=== PATIENT | female | born 1940 | race Caucasian/White ===

== ENCOUNTER 2021-11-28 13:36 | Observation (INO) | payer MEDICARE ==
[2021-11-28 14:43] LABS: #Lymphocytes 1.4 thou/uL (1.20-3.40); #Monocytes 0.7 thou/uL (0.11-0.59); #Neutrophils 3.4 thou/uL (1.40-6.50); %Basophils 0.2 % (0.0-1.0); %Eosinophils 0.9 % (0.0-10.0); %Lymphocytes 24.5 % (21.0-51.0); %Monocytes 12.5 % (0.0-10.0); %Neutrophils 61.9 % (42.0-75.0); Hemoglobin 14.2 g/dL (12.0-16.0); Mean Corpuscular HGB CONC 33.3 g/dL (32.0-36.0); Mean Corpuscular Hemoglobin 30.2 pg (27.0-31.0); Mean Corpuscular Volume 90.9 fL (78.0-98.0); Mean Platelet Volume 9.7 fL (7.4-10.4); Platelet Count 231 thou/uL (130-400); RBC Distribution Width 12.5 % (11.5-14.5); White Blood Cell (WBC) Count 5.6 thou/uL (4.8-10.8)
[2021-11-28 14:49] LABS: Bacteria/HPF 4+ HPF (None Seen); Bilirubin Negative (Negative); Blood, Urine Negative (Negative); Clarity Turbid (Clear); Glucose, Urine (Dipstick) Normal (Negative); Ketone, Urine Negative (Negative); Leukocyte 25 Leu/uL (Negative); Nitrite Negative (Negative); Protein, Urine (Dipstick) 30 mg/dL (Neg-Trace); RBC/HPF 0-3 HPF (0-3); Specific Gravity, Urine 1.021 (1.002-1.036); Squamous Epithelial 0-3 HPF (0-3); Urobilinogen 3 mg/dL (Less than 2)
[2021-11-28 15:13] LABS: ALT (SGPT) 21 U/L (8-55); AST (SGOT) 19 U/L (5-34); Alkaline Phosphatase 86 U/L (40-110); Anion Gap 13 mmol/L (10-20); BUN (Urea Nitrogen) 24 mg/dL (9.8-20.1); Bilirubin, Total 0.7 mg/dL (0.2-1.2); Calc. Creatinine Clearance 0 mL/min (70-130); Calcium 10.3 mg/dL (7.8-10.44); Carbon Dioxide 29 mmol/L (23-31); Chloride 100 mmol/L (98-107); Globulin 2.9 g/dL (2.4-3.5); Glucose 98 mg/dL (83-110); Protein, Total 6.9 g/dL (5.8-8.1); Sodium 139 mmol/L (136-145)
[2021-11-28 15:19] LABS: Potassium 2.6 mmol/L (3.5-5.1)
[2021-11-28 15:33] LABS: CKMB 1.9 ng/mL (0-6.6)
[2021-11-28] MEDS ORDERED: cefTRIAXone\\ROCEPHIN 1 GM VIAL ONE (17:15)
[2021-11-28] MEDS ORDERED: Potassium Chloride 20 MEQ TAB ONE (17:15)
[2021-11-28] MEDS ORDERED: Aspirin Chewable 81 MG TAB ONE (17:15)
[2021-11-28] MEDS ORDERED: Potassium Chloride 20 MEQ/100 ML PREMIX BAG ONE (17:15)
[2021-11-28 18:07] LABS: Troponin I 0.021 ng/mL (< 0.028)
[2021-11-28] MEDS ORDERED: Calcium Carbonate 500 MG ChewTAB PO PRN (18:53)
[2021-11-28] MEDS ORDERED: Ondansetron ODT 4 MG TAB PO PRN (18:53)
[2021-11-28] MEDS ORDERED: Acetaminophen 325 MG TAB PO PRN (18:53)
[2021-11-28] MEDS ORDERED: Acetaminophen 650 MG Suppository PR PRN (18:53)
[2021-11-28] MEDS ORDERED: Ondansetron PF 4 MG/2 ML Vial IVP PRN (18:53)
[2021-11-28 19:24] LABS: SARS-CoV-2 NAA Rapid Test DETECTED (NotDetected)
[2021-11-28 19:45] VITALS: BP 169/79; TEMP 98.3
[2021-11-28 19:46] VITALS: BMI 25.7
[2021-11-28 20:29] LABS: Troponin I 0.017 ng/mL (< 0.028)
[2021-11-28] MEDS ORDERED: Amlodipine 10 MG TAB PO SCH (21:00)
[2021-11-28] MEDS ORDERED: Mirtazapine 15 MG TAB PO SCH (21:00)
[2021-11-28 21:12] LABS: Anion Gap 17 mmol/L (10-20); BUN (Urea Nitrogen) 23 mg/dL (9.8-20.1); Calc. Creatinine Clearance 58 mL/min (70-130); Calcium 9.8 mg/dL (7.8-10.44); Carbon Dioxide 22 mmol/L (23-31); Chloride 104 mmol/L (98-107); Glucose 100 mg/dL (83-110); Potassium 3.1 mmol/L (3.5-5.1); Sodium 140 mmol/L (136-145)
[2021-11-29] MEDS ORDERED: Atenolol 50 MG TAB PO SCH (09:00)
[2021-11-29] MEDS ORDERED: Enoxaparin Sodium 40 MG/0.4 ML SYRINGE SC SCH (09:00)
[2021-11-29] MEDS ORDERED: Venlafaxine HCl XR 75 MG CAP PO SCH (09:00)
[2021-11-29] MEDS ORDERED: Chlorthalidone 25 MG TAB PO SCH (09:00)
[2021-11-29] MEDS ORDERED: cefTRIAXone\\ROCEPHIN 1 GM in Sodium Chloride 0.9% 100 ML IVPB SCH (18:00)
== END 2021-11-28 21:46 | disposition left against medical advice (07) ==
LOC: ERS 13:36 → 2NO 17:15
PROVIDERS: ADMIT Student in an Organized Health Care Education/Training Program; ATTEND Student in an Organized Health Care Education/Training Program
DX: R00.1 Bradycardia, unspecified (principal); E87.6 Hypokalemia; R19.7 Diarrhea, unspecified; N39.0 Urinary tract infection, site not specified; U07.1 COVID-19; J12.82 Pneumonia due to coronavirus disease 2019; I12.9 Hypertensive chronic kidney disease with stage 1 through stage 4 chronic kidney disease, or unspecified chronic kidney disease; N18.32 Chronic kidney disease, stage 3b; F03.90 Unspecified dementia, unspecified severity, without behavioral disturbance, psychotic disturbance, mood disturbance, and anxiety; R63.4 Abnormal weight loss; Z68.25 Body mass index [BMI] 25.0-25.9, adult; Z53.9 Procedure and treatment not carried out, unspecified reason; Z66 Do not resuscitate; Z87.891 Personal history of nicotine dependence; Z79.899 Other long term (current) drug therapy
CPT/HCPCS: 80048; 82553; 83690; 84145; 84484 ×2; 87077; 87086; 87186; 93005; G0378 ×2; U0002; 36415; 80053; 81003; 81015; 84443; 85025; J0696; J3480